=== PATIENT | female | born 1980 | race Caucasian/White ===

== ENCOUNTER 2024-01-16 11:22 | Inpatient (IN) | payer MEDICAID ==
[~2024-01-16] VITALS: Ht 170.2 cm; Wt 79.4 kg
[2024-01-16 11:24] VITALS: BP_SYST 147; PULSE 100; RESP 18; TEMP 97.6; O2SAT 97
[2024-01-16 12:14] LABS: BASOPHILS # (AUTO) 0.1 K/uL (0.0-0.2); BASOPHILS % (AUTO) 0.7 % (0.0-2.0); EOSINOPHILS # (AUTO) 0.4 K/uL (0.0-0.4); EOSINOPHILS % (AUTO) 3.3 % (0.0-4.0); HEMATOCRIT 37.5 % (36-48); HEMOGLOBIN 12.6 g/dL (12.0-16.0); LYMPHOCYTES # (AUTO) 2.5 K/uL (1.0-5.5); LYMPHOCYTES % (AUTO) 20.7 % (20.5-51.5); MEAN CORPUSCULAR HEMOGLOBIN 30 pg (27-31); MEAN CORPUSCULAR HGB CONC 34 % (32-36); MEAN CORPUSCULAR VOLUME 88 fL (79.0-98.0); MONOCYTES # (AUTO) 0.7 K/uL (0.0-1.0); MONOCYTES % (AUTO) 5.4 % (1.7-9.3); NEUTROPHILS # (AUTO) 8.5 K/uL (1.8-7.7); NEUTROPHILS % (AUTO) 69.9 % (40.0-70.0); PLATELET COUNT (AUTO) 271 K/uL (130-430); RED BLOOD CELL COUNT(AUTO) 4.24 MIL/uL (4.2-6.2); RED CELL DISTRIBUTION WIDTH 13.1 % (9.0-15.0); WHITE BLOOD COUNT (AUTO) 12.2 K/uL (4.8-10.8)
[2024-01-16 12:25] LABS: CREATININE 0.81 mg/dL (0.55-1.30); POTASSIUM 3.6 mmol/L (3.5-5.1)
[2024-01-16] MEDS ORDERED: PIPERACILLIN/TAZOBACTAM 4.5 GM/VIAL (ZOSYN) IV ONE ×2 (12:32)
[2024-01-16] MEDS: PIPERACILLIN/TAZO 4.5 GM in NS 100 ML IV ONE (12:47)
[2024-01-16] MEDS: KETOROLAC TROMETHAMINE 15 MG VIAL IVP ONE (13:11)
[2024-01-16 16:47] VITALS: BP_SYST 127; PULSE 88; RESP 16; TEMP 98
[2024-01-16 17:36] VITALS: BP_SYST 127; PULSE 88; RESP 14; TEMP 98; O2SAT 99
[2024-01-16] MEDS: KETOROLAC TROMETHAMINE 15 MG VIAL IVP PRN (17:40)
[2024-01-16 20:00] VITALS: BP_SYST 131; PULSE 85; RESP 18; TEMP 98; O2SAT 98
[2024-01-16] MEDS ORDERED: ACETAMINOPHEN 325 MG TABLET PO PRN (22:30)
[2024-01-16] MEDS ORDERED: HYDROcodone/ACETAMIN 5-325 MG TAB (NORCO/ VICODIN) PO PRN (22:30)
[2024-01-16] MEDS: HYDROcodone/ACETAMIN 10-325 MG TAB PO PRN (22:35)
[2024-01-16] MEDS ORDERED: LORazepam 2 MG/ML VIAL IVP PRN (22:45)
[2024-01-16] MEDS ORDERED: ONDANSETRON HCL 4 MG/2 ML VIAL IVP PRN (22:45)
[2024-01-17 00:02] VITALS: BP_SYST 128; PULSE 81; RESP 18; TEMP 98.7; O2SAT 99
[2024-01-17] MEDS: PIPERACILLIN/TAZOBACTAM 3.375 GM/VIAL (ZOSYN) IV ONE (01:54)
[2024-01-17] MEDS: PIPERACILLIN/TAZO 3.375/DEX-IS 50 ML IV SCH (01:54)
[2024-01-17] MEDS: KETOROLAC TROMETHAMINE 15 MG VIAL IVP PRN (04:48)
[2024-01-17] MEDS: NORMAL SALINE 5 ML DISP.SYRIN IVF SCH (05:23)
[2024-01-17 05:45] LABS: CREATININE 0.79 mg/dL (0.55-1.30); POTASSIUM 4.4 mmol/L (3.5-5.1)
[2024-01-17 06:46] LABS: BASOPHILS # (AUTO) 0.1 K/uL (0.0-0.2); BASOPHILS % (AUTO) 0.4 % (0.0-2.0); EOSINOPHILS # (AUTO) 0.5 K/uL (0.0-0.4); EOSINOPHILS % (AUTO) 3.7 % (0.0-4.0); HEMATOCRIT 36.7 % (36-48); HEMOGLOBIN 12.2 g/dL (12.0-16.0); LYMPHOCYTES # (AUTO) 3.6 K/uL (1.0-5.5); LYMPHOCYTES % (AUTO) 26.3 % (20.5-51.5); MEAN CORPUSCULAR HEMOGLOBIN 29 pg (27-31); MEAN CORPUSCULAR HGB CONC 33 % (32-36); MEAN CORPUSCULAR VOLUME 88 fL (79.0-98.0); MONOCYTES # (AUTO) 1.1 K/uL (0.0-1.0); MONOCYTES % (AUTO) 8.1 % (1.7-9.3); NEUTROPHILS # (AUTO) 8.5 K/uL (1.8-7.7); NEUTROPHILS % (AUTO) 61.5 % (40.0-70.0); PLATELET COUNT (AUTO) 295 K/uL (130-430); RED BLOOD CELL COUNT(AUTO) 4.18 MIL/uL (4.2-6.2); RED CELL DISTRIBUTION WIDTH 12.9 % (9.0-15.0); WHITE BLOOD COUNT (AUTO) 13.8 K/uL (4.8-10.8)
[2024-01-17 08:00] VITALS: BP_SYST 110; PULSE 79; RESP 18; TEMP 98.1; O2SAT 98
[2024-01-17 12:00] VITALS: BP_SYST 109; PULSE 87; RESP 18; TEMP 97.4; O2SAT 99
[2024-01-17] MEDS ORDERED: AMOX-423 PO (15:58)
[2024-01-17] MEDS ORDERED: HYDR-3917 PO (15:58)
[2024-01-17 16:25] VITALS: BP_SYST 115; PULSE 81; RESP 18; TEMP 98.3; O2SAT 98
== END 2024-01-17 16:55 | disposition home or self-care (01) | DRG 720 ==
LOC: SED 11:22 → SMU 14:29
PROVIDERS: ADMIT Preventive Medicine Preventive Medicine/Occupational Environmental Medicine; ATTEND Preventive Medicine Preventive Medicine/Occupational Environmental Medicine
DX: A41.9 Sepsis, unspecified organism (principal); E87.20 Acidosis, unspecified; E11.65 Type 2 diabetes mellitus with hyperglycemia; K04.7 Periapical abscess without sinus; K12.2 Cellulitis and abscess of mouth; Z72.0 Tobacco use; Z79.899 Other long term (current) drug therapy
CPT/HCPCS: 36415; 70487; 80048; 83605; 85025; 87040; 96365; 96375; 99291; J1885; J2543; Q9967